=== PATIENT | female | born 1965 | race Caucasian/White ===

== ENCOUNTER 2019-09-14 08:52 | Emergency (ER) | payer BC ==
[2019-09-14 09:28] VITALS: BP 129/91
--- NOTE | 2019-09-14 10:14 | UC ---
Throat Pain/Nasal Grady HPI - HPI Summary HPI Summary: 54 yo female presents with sore throat. She tells me that for the last 2 days she has had a sore throat and headache. States her grandchildren both had strep and she was around them over the last few days. She has not taken anything OTC for her symptoms. She is eating, drinking, and tolerating po well. Denies fever , chills, sinus symptoms, cough, rash, abdominal pain, n/v - History of Current Complaint Chief Complaint: UCGeneralIllness Stated Complaint: SORE THROAT Time Seen by Provider: 09/14/19 10:13 Hx Obtained From: Patient Onset/Duration: Sudden Onset Severity: Mild Pain Intensity: 4 Pain Scale Used: 0-10 Numeric - Allergies/Home Medications Allergies/Adverse Reactions: Allergies Allergy/AdvReac Type Severity Reaction Status Date / Time ciprofloxacin Allergy Unknown Unknown Verified 09/14/19 09:28 Reaction Details meperidine Allergy Unknown Unknown Verified 09/14/19 09:28 Reaction Details Sulfa (Sulfonamide Allergy Unknown Unknown Verified 09/14/19 09:28 Antibiotics) Reaction Details Home Medications: Home Medications Calcium Carbonate/Vitamin D3 [Calcium + D] 1 tab PO DAILY 04/29/12 [History Confirmed 09/03/19] Folic Acid TAB* [Folvite TAB*] 1 mg PO DAILY 04/29/12 [History Confirmed ] Hydroxychloroquine TAB* [Plaquenil TAB*] 200 mg PO DAILY 04/29/12 [History Confirmed 09/03/19] Levothyroxine TAB* [Synthroid 88 MCG TAB*] 88 mcg PO DAILY 04/29/12 [History Confirmed 09/03/19] Liothyronine TAB* [Cytomel TAB*] 5 mcg PO DAILY 04/29/12 [History Confirmed ] Multivitamin [Multivitamins] 1 cap PO DAILY 04/29/12 [History Confirmed 09/03/19 ] Sertraline* [Zoloft*] 50 mg PO DAILY 04/29/12 [History Confirmed 09/03/19] Gabapentin CAP(*) [Neurontin CAP(*)] 600 mg PO BEDTIME PRN 04/28/13 [History Confirmed 09/03/19] Cholecalciferol (Vitamin D3) [Vitamin D3] 1 tab PO DAILY 08/18/13 [History Confirmed 09/03/19] Cyclosporine 0.05% OPHTH (NF) [Restasis 0.05% OPHTH] 1 drop BOTH EYES BID [History Confirmed 09/03/19] Hydrochlorothiazide TAB* [Hydrodiuril TAB*] 12.5 mg PO DAILY 11/09/14 [History Confirmed 09/03/19] Ascorbic Acid TAB* [Vitamin C TAB*] 1,000 mg PO DAILY 01/03/16 [History Confirmed 09/03/19] Azelastine 0.1% Nasal (NF) [Astepro 0.1% Nasal (NF)] 2 puff NASAL DAILY [History Confirmed 09/03/19] Cyanocobalamin TAB* [Vitamin B12 TAB*] 1,000 mcg PO DAILY 01/03/16 [History Confirmed 09/03/19] Polyethylene Glycol 3350* [Miralax*] 17 gm PO DAILY 01/03/16 [History Confirmed 09/03/19] Triamcinolone NASAL SPRAY* [Nasacort AQ Nasal [place]*] 2 puff NASAL DAILY [History Confirmed 09/03/19] buPROPion SR TAB* [Wellbutrin SR TAB*] 150 mg PO BID 01/03/16 [History Confirmed 09/03/19] Methotrexate TAB* 6 tab PO Q7D 12/04/17 [History Confirmed 09/03/19] Milk Thistle [Milk Thistle Extract] 360 mg PO BID 12/04/17 [History Confirmed ] Naproxen Sodium [Naproxen 220 mg] 4 tab PO BID PRN 12/04/17 [History Confirmed 09/03/19] Knox-3/Dha/Epa/Fish Oil [Knox-3 Fish Oil Softgel] 1 each PO DAILY 12/04/17 [ History Confirmed 09/03/19] Omeprazole CAP (NF) [Prilosec CAP* 20 MG] 20 mg PO EVERY OTHER DAY 12/04/17 [ History Confirmed 09/03/19] Potassium Chloride [Klor-Con] 20 meq PO DAILY 12/04/17 [History Confirmed ] Cevimeline HCl 30 mg PO BID 02/26/18 [History Confirmed 09/03/19] Candesartan Cilexetil 8 mg PO DAILY 10/09/18 [History Confirmed 09/03/19] Amoxicillin PO (*) [Amoxicillin 500 MG CAP*] 500 mg PO Q12H #20 cap 09/14/19 [Rx ] PMH/Surg Hx/FS Hx/Imm Hx - Additional Past Medical History Additional PMH: RA Endocrine History: Hypothyroidism Psychological History: Anxiety, Depression - Surgical History Surgical History: None - Family History Known Family History: Positive: Non-Contributory - Social History Occupation: Employed Full-time Lives: With Family Alcohol Use: Occasionally Substance Use Type: None Smoking Status (MU): Never Smoked Tobacco Have You Smoked in the Last Year: No Household Exposure Type: Cigarettes Review of Systems All Other Systems Reviewed And Are Negative: No Constitutional: Positive: Negative Skin: Positive: Negative Eyes: Positive: Negative ENT: Positive: Sore Throat Respiratory: Positive: Negative Cardiovascular: Positive: Negative Gastrointestinal: Positive: Negative Musculoskeletal: Positive: Negative Neurological/Mental Status: Positive: Headache Psychological: Positive: Negative Physical Exam - Summary Physical Exam Summary: GENERAL: NAD. WDWN. No pain distress. SKIN: No rashes, sores, lesions, or open wounds. HEENT: Head: AT/NC Eyes: Conjunctiva clear without inflammation or discharge. Ears: Hearing grossly normal. TMs intact, no bulging, erythema, or edema. Nose: Nasal mucosa pink and moist. NTTP maxillary and frontal sinus. Throat: Posterior oropharynx mild erythema and 2+ tonsillar enlargement. No exudates. Uvula midline. No hoarse voice or muffled voice. NECK: Supple. Mild ttp tonsillar LAD CHEST: CTAB. No r/r/w. No accessory muscle use. Breathing comfortably and in no distress. CV: RRR. Pulses intact. Cap refill <2seconds NEURO: Alert. PSYCH: Age appropriate behavior. Triage Information Reviewed: Yes Vital Signs: Initial Vital Signs Temp 98.8 F 09/14/19 09:24 Pulse 84 09/14/19 09:24 Resp 16 09/14/19 09:24 BP 129/91 09/14/19 09:24 Pulse Ox 99 09/14/19 09:24 Laboratory Tests 09/14/19 09:44 Group A Strep Rapid Positive H Vital Signs Reviewed: Yes Throat Pain/Nasal Course/Dx - Course Course Of Treatment: POC strep positive. Rx for amoxicillin - Differential Dx/Diagnosis Provider Diagnosis: Strep pharyngitis Discharge ED - Sign-Out/Discharge Documenting (check all that apply): Patient Departure All imaging exams completed and their final reports reviewed: No Studies - Discharge Plan Condition: Stable Disposition: HOME Prescriptions: Amoxicillin PO (*) [Amoxicillin 500 MG CAP*] 500 mg PO Q12H #20 cap Patient Education Materials: Strep Throat (ED) Forms: *Work Release Referrals: Maria Eugenia Brooks MD [Primary Care Provider] - Additional Instructions: If you develop a fever, shortness of breath, chest pain, new or worsening symptoms - please call your PCP or go to the ED immediately. - Billing Disposition and Condition Condition: STABLE Disposition: Home
== END 2019-09-14 10:20 | disposition home or self-care (01) ==
LOC: UCEAST 08:52
DX: J02.0 Streptococcal pharyngitis (principal); R51 Headache; M06.9 Rheumatoid arthritis, unspecified; E03.9 Hypothyroidism, unspecified; F41.9 Anxiety disorder, unspecified; F32.9 Major depressive disorder, single episode, unspecified; Z79.899 Other long term (current) drug therapy; Z79.890 Hormone replacement therapy; Z88.8 Allergy status to other drugs, medicaments and biological substances; Z88.2 Allergy status to sulfonamides
CPT/HCPCS: 87651